=== PATIENT | female | born 1965 | race African-American/Black ===

== ENCOUNTER 2017-09-06 13:29 | Outpatient (CLI) ==
--- NOTE | 2017-09-08 07:20 | MAMMO ---
EXAM: Digital screening mammogram with 3-D tomosynthesis HISTORY: Screening mammogram COMPARISON: mammogram 12/31/2015 FINDINGS: Bilateral CC and MLO views of the breasts were performed digitally and demonstrate scatter ed fibroglandular breast density. Stable bilateral breast masses a are present. There are benign al cifications. There is no abnormal nodule or calcification. There is no significant interval change. IMPRESSION: No suspicious mass or or calcification RECOMMENDATION: Annual screening mammogram BIRADS category II: Benign findings
== END 2017-09-06 13:30 | disposition home or self-care (01) ==
LOC: RAD 13:29
PROVIDERS: ATTEND Clinical Nurse Specialist
DX: Z12.31 Encounter for screening mammogram for malignant neoplasm of breast (principal)
CPT/HCPCS: 77067